=== PATIENT | female | born 1970 | race African-American/Black ===

== ENCOUNTER 2024-01-20 18:53 | Inpatient (IN) | payer OTHER, SELFPAY ==
[2024-01-20 19:14] VITALS: BMI 30.6
[2024-01-20 19:15] VITALS: BP 139/92; PULSE 74; RESP 16; TEMP 36.5; O2SAT 98
[2024-01-20 20:00] VITALS: BP 140/86; PULSE 80; RESP 20; TEMP 36.5; O2SAT 97
[2024-01-20] MEDS: Gabapentin 300 MG CAPSULE 900 MG PO (22:02)
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
[2024-01-21 08:00] VITALS: BP 144/78; PULSE 72; RESP 18; TEMP 36.3; O2SAT 99
[2024-01-21 08:17] LABS: MANUAL DIFF FLAG NO
[2024-01-21 08:27] LABS: Basophils Percent Auto 0.5 % (0-2); Eosinophils Absolute Auto 0.1 X10*3/uL (0.0-0.4); Hematocrit 42.1 % (37.0-47.0); Hemoglobin 13.4 g/dl (12.0-16.0); Lymphocytes Absolute Auto 1.8 X10*3/uL (1.2-4.9); Lymphocytes Percent Auto 49.3 % (20-40); Mean Corpuscular HGB Conc 31.8 g/dl (31.0-35.0); Mean Corpuscular Volume 81.6 fL (80.0-98.0); Mean Platelet Volume 9.6 fL (9.4-12.3); Monocytes Absolute Auto 0.2 X10*3/uL (0.1-1.2); Monocytes Percent Auto 5.2 % (2-11); Neutrophils Absolute Auto 1.5 x10*3/uL (2.0-8.3); Platelet Count 293 X10*3/uL (160-400); Red Blood Count 5.16 X10*6/uL (4.20-5.50); Red Cell Distribution Width 12.7 % (11.0-16.0); White Blood Count 3.7 X10*3/uL (4.8-10.8)
[2024-01-21] MEDS: amLODIPine Besylate 5 MG TABLET PO (08:33)
[2024-01-21] MEDS: Gabapentin 300 MG CAPSULE 900 MG PO ×3 (08:33→21:25)
[2024-01-21 08:39] LABS: Estimated Average Glucose 111 mg/dL; Hemoglobin A1C 135.0186 umol/L; Hemoglobin A1c % 5.5 % (<6.0); Total Hemoglobin (HGBA1C) 3646.3912 umol/L
[2024-01-21 08:48] LABS: Alanine Aminotransferase 11 U/L (0-31); Albumin Level 3.9 g/dL (3.5-5.0); Alkaline Phosphatase 89 U/L (39-117); Anion Gap 12 (12-20); Aspartate Amino Transferase 22 U/L (5-31); Bilirubin Direct 0.2 mg/dL (0.0-0.5); Bilirubin Total 0.5 mg/dL (0.0-1.0); Blood Urea Nitrogen 16 mg/dL (9-16); Calcium 9.6 mg/dL (8.4-10.2); Carbon Dioxide 26 mmol/L (22-29); Chloride 109 mmol/L (96-108); Cholesterol 155 mg/dL (<200); Creatinine Clr Calc Pharmacy 59.4; Estimated Glomerular Filt Rate > 60; Glucose Fasting 98 mg/dL (60-99); HDL Cholesterol 53 mg/dL (>40); LDL Cholesterol Calculated 82 mg/dL (<100); Potassium 3.9 mmol/L (3.3-5.1); Sodium 143 mmol/L (135-145); Triglycerides 101 mg/dL (<150)
[2024-01-21 09:03] LABS: Thyroid Stimulating Hormone 0.34 uIU/mL (0.32-4.0)
[2024-01-21 09:19] LABS: Folate 10.9 ng/mL (> or = 4.0); Vitamin B12 303 pg/mL (200-900)
[2024-01-21] MEDS: Acetaminophen 325 MG TABLET 650 MG PO ×2 (10:25→21:26)
[2024-01-21] MEDS: Ibuprofen 800 MG TABLET PO (10:25)
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
[2024-01-21 19:54] VITALS: BP 135/68; PULSE 80; TEMP 36.5; O2SAT 97
[2024-01-21] MEDS: lamoTRIgine 100 MG TABLET PO (21:26)
[2024-01-22 08:00] VITALS: BP 128/64; PULSE 89; RESP 18; TEMP 36.3; O2SAT 97
[2024-01-22 09:08] VITALS: BP 126/64
[2024-01-22] MEDS: lamoTRIgine 100 MG TABLET PO ×2 (09:08→23:39)
[2024-01-22] MEDS: Gabapentin 300 MG CAPSULE 900 MG PO ×3 (09:08→23:37)
[2024-01-22] MEDS: DULoxetine HCl 60 MG CAPSULE.DR PO (09:08)
[2024-01-22] MEDS: amLODIPine Besylate 5 MG TABLET PO (09:08)
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
[2024-01-22 20:00] VITALS: BP 154/85; PULSE 88; TEMP 36.6; O2SAT 96
[2024-01-22] MEDS: Pregabalin 25 MG CAPSULE PO (23:38)
[2024-01-23 08:00] VITALS: BP 156/80; PULSE 83; RESP 19; TEMP 36.7; O2SAT 97
[2024-01-23] MEDS: Pregabalin 25 MG CAPSULE PO ×2 (08:43→21:03)
[2024-01-23] MEDS: amLODIPine Besylate 5 MG TABLET PO (08:43)
[2024-01-23] MEDS: DULoxetine HCl 60 MG CAPSULE.DR PO (08:43)
[2024-01-23] MEDS: Gabapentin 300 MG CAPSULE 900 MG PO ×3 (08:44→21:03)
[2024-01-23] MEDS: lamoTRIgine 100 MG TABLET PO ×2 (08:44→21:04)
--- NOTE | 2024-01-23 10:46 | P.PNPSI_ITS ---
Subjective Subjective Date of Service: 01/23/24 Reason For Visit: Suicidal Ideation Subjective Notes: Conditional Voluntary Healthcare Proxy: No Guardianship: No Medical Problems Affecting Mental Status: No Interim History: Discussed stressors at home, losses, supports. 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 Discuss what helps her to cope. Extended family moving from the family home she believes will be the most helpful. Discussed pain and possibly changing Gabapentin to Lyrica Medication Compliance: Yes Side effects from medications: No Attending Groups: Intermittent Review of Systems Acute medical concerns: No Medical Review of Systems: unchanged Review of Systems Review of Systems chronic pain Yes all other systems are reviewed and are negative Mental Status Exam Mental Status Exam Patient Appearance: Appropriate Patient Orientation: Person, Place and Time Level of Consciousness: Awake and Appropriate Patient Behavior: Appropriate, Talkative and Good Eye Contact Mood Description: Calm, Depressed, Anxious and Sad Affect Description: Appropriate and Depressed Patient Cognition Impaired: No Ability to Follow Directions: Excellent Speech Pattern: Clear Memory Description: Intact Hallucinations: None Delusions: Not Present Thought Process: Intact, Goal Oriented and Linear Thought Content: positive for Logical Depressive Symptoms: Feelings of Worthlessness, Hopelessness and Unhappiness Judgement: Good Diagnostics Vital Signs (24Hr): Vital Signs - 24 hr 01/22/24 20:00 01/23/24 08:00 Temperature 97.9 F 98.0 F Pulse Rate 88 83 Respiratory Rate 19 Blood Pressure 154/85 H 156/80 H Pulse Oximetry 96 97 Oxygen Delivery Method Room Air Room Air BMI result Body Mass Index 30.6 Labs 01/21/24 08:12 01/21/24 08:12 Medications Medications Current Medications Acetaminophen (Acetaminophen 325 Mg Tablet) 650 mg PO Q6H PRN PRN Reason: Headache/Pain Mild Scale (1-3) Last Admin: 01/21/24 21:26 Dose: 650 mg Al Hydroxide/Mg Hydroxide (Magnesium Hydrox/Alum Hydrox 30 Ml Oral.Susp) 30 ml PO Q6H PRN PRN Reason: Heartburn/Nausea Amlodipine Besylate (Amlodipine Besylate 5 Mg Tablet) 5 mg PO DAILY [facility]; Protocol Last Admin: 01/23/24 08:43 Dose: 5 mg Duloxetine HCl (Duloxetine Hcl 60 Mg Capsule.Dr) 60 mg PO DAILY [facility] Last Admin: 01/23/24 08:43 Dose: 60 mg Gabapentin (Gabapentin 300 Mg Capsule) 900 mg PO TID [facility] Last Admin: 01/23/24 08:44 Dose: 900 mg Hydroxyzine HCl (Hydroxyzine Hcl 25 Mg Tablet) 25 mg PO Q6H PRN PRN Reason: Anxiety Ibuprofen (Ibuprofen 800 Mg Tablet) 800 mg PO Q8H PRN PRN Reason: Pain, Moderate(Pain Scale 4-6) Last Admin: 01/21/24 10:25 Dose: 800 mg Lamotrigine (Lamotrigine 100 Mg Tablet) 100 mg PO BID [facility] Last Admin: 01/23/24 08:44 Dose: 100 mg Magnesium Hydroxide (Milk Of Magnesia 30 Ml Oral.Susp) 30 ml PO DAILY PRN PRN Reason: Constipation Pregabalin (Pregabalin 25 Mg Capsule) 25 mg PO BID [facility] Last Admin: 01/23/24 08:43 Dose: 25 mg Trazodone HCl (Trazodone Hcl 50 Mg Tablet) 50 mg PO BEDTIME MRX1 PRN PRN Reason: Insomnia Allergies Allergies Allergy/AdvReac Type Severity Reaction Status Date / Time Latex, Natural Rubber Allergy Unknown Unknown Verified 01/20/24 17:35 Assessment & Plan Assessment & Plan (1) Bipolar disorder current episode depressed: Status: Acute Code(s): F31.30 - Bipolar disorder, current episode depressed, mild or moderate severity, unspecified Assessment and Plan: 53 yo female with history of bipolar disorder presented to [facility] feeling increasingly depressed, anxious, feeling like I am losing control and feeling like she is going to go into a manic episode. This is in the context of recurrence of pain and worsening mobility and home stress. Plan: - Admit to inpatient psychiatry - CV - Collateral information from family and providers. - Milieu treatment and group therapy. - Medications:Restart outpatient medications. Confirm medications when pharmacy opens. Consider adjustments. - Social work evaluation. - Disposition planning. Plan 01/22: Pt asks for no med changes. She is considering a trial change from Gabapentin to Lyrica. Groups encouarged. Rates depression anxiety 10/20 today. Reason for continued inpatient stay Substantial Risk for: rapid decompensation Time Spent With Patient Time: Total time managing care of this patient today ____ minutes.
[2024-01-23 20:00] VITALS: BP 144/82; PULSE 81; TEMP 36.5; O2SAT 98
[2024-01-24 08:27] VITALS: BP 146/84; PULSE 80; RESP 16; TEMP 36.4; O2SAT 100
[2024-01-24] MEDS: lamoTRIgine 100 MG TABLET PO ×2 (08:41→21:15)
[2024-01-24] MEDS: Pregabalin 25 MG CAPSULE PO (08:41)
[2024-01-24] MEDS: Gabapentin 300 MG CAPSULE 900 MG PO ×2 (08:42→16:42)
[2024-01-24] MEDS: amLODIPine Besylate 5 MG TABLET PO (08:42)
[2024-01-24] MEDS: DULoxetine HCl 60 MG CAPSULE.DR PO (08:42)
[2024-01-24] MEDS: bisacodyL 5 MG TABLET.DR 10 MG PO (13:10)
--- NOTE | 2024-01-24 17:39 | P.PNPSI_ITS ---
Subjective Subjective Date of Service: 01/24/24 Reason For Visit: Suicidal Ideation Subjective Notes: Conditional Voluntary Healthcare Proxy: No Guardianship: No Medical Problems Affecting Mental Status: No Interim History: Attending groups, 3 in total today Lyrica trial 50 mg bid Constipation-Dulcolax trial Discussed her irritation with peers on the unit who scream, are loud. One peer in particular she is triggered to anger by. Discussed, related to current life stressors. Education provided Discussed her frustrations with family, behaviors, lack of support, her care taking roles and making some changes. Declines psychotropic medication changes. Medication Compliance: Yes Side effects from medications: No Attending Groups: Yes Review of Systems Acute medical concerns: No Medical Review of Systems: unchanged Review of Systems Review of Systems Denies Yes all other systems are reviewed and are negative Mental Status Exam Mental Status Exam Patient Appearance: Appropriate Patient Orientation: Person, Place and Time Level of Consciousness: Awake and Appropriate Patient Behavior: Appropriate, Talkative and Good Eye Contact Mood Description: Calm, Depressed, Anxious and Sad Affect Description: Appropriate and Depressed Patient Cognition Impaired: No Ability to Follow Directions: Excellent Speech Pattern: Clear Memory Description: Intact Hallucinations: None Delusions: Not Present Thought Process: Intact, Goal Oriented and Linear Thought Content: positive for Logical Depressive Symptoms: Feelings of Worthlessness, Hopelessness and Unhappiness Judgement: Good Diagnostics Vital Signs (24Hr): Vital Signs - 24 hr 01/23/24 20:00 01/24/24 08:27 Temperature 97.7 F 97.5 F Pulse Rate 81 80 Respiratory Rate 16 Blood Pressure 144/82 H 146/84 H Pulse Oximetry 98 100 Oxygen Delivery Method Room Air Room Air BMI result Body Mass Index 30.6 Labs 01/21/24 08:12 01/21/24 08:12 Medications Medications Current Medications Acetaminophen (Acetaminophen 325 Mg Tablet) 650 mg PO Q6H PRN PRN Reason: Headache/Pain Mild Scale (1-3) Last Admin: 01/21/24 21:26 Dose: 650 mg Al Hydroxide/Mg Hydroxide (Magnesium Hydrox/Alum Hydrox 30 Ml Oral.Susp) 30 ml PO Q6H PRN PRN Reason: Heartburn/Nausea Amlodipine Besylate (Amlodipine Besylate 5 Mg Tablet) 5 mg PO DAILY [facility]; Protocol Last Admin: 01/24/24 08:42 Dose: 5 mg Duloxetine HCl (Duloxetine Hcl 60 Mg Capsule.Dr) 60 mg PO DAILY [facility] Last Admin: 01/24/24 08:42 Dose: 60 mg Gabapentin (Gabapentin 300 Mg Capsule) 900 mg PO TID [facility] Last Admin: 01/24/24 16:42 Dose: 900 mg Hydroxyzine HCl (Hydroxyzine Hcl 25 Mg Tablet) 25 mg PO Q6H PRN PRN Reason: Anxiety Ibuprofen (Ibuprofen 800 Mg Tablet) 800 mg PO Q8H PRN PRN Reason: Pain, Moderate(Pain Scale 4-6) Last Admin: 01/21/24 10:25 Dose: 800 mg Lamotrigine (Lamotrigine 100 Mg Tablet) 100 mg PO BID [facility] Last Admin: 01/24/24 08:41 Dose: 100 mg Magnesium Hydroxide (Milk Of Magnesia 30 Ml Oral.Susp) 30 ml PO DAILY PRN PRN Reason: Constipation Pregabalin (Pregabalin 25 Mg Capsule) 25 mg PO BID [facility] Last Admin: 01/24/24 08:41 Dose: 25 mg Trazodone HCl (Trazodone Hcl 50 Mg Tablet) 50 mg PO BEDTIME MRX1 PRN PRN Reason: Insomnia Allergies Allergies Allergy/AdvReac Type Severity Reaction Status Date / Time Latex, Natural Rubber Allergy Unknown Unknown Verified 01/20/24 17:35 Assessment & Plan Assessment & Plan (1) Bipolar disorder current episode depressed: Status: Acute Code(s): F31.30 - Bipolar disorder, current episode depressed, mild or moderate severity, unspecified Assessment and Plan: 53 yo female with history of bipolar disorder presented to [facility] feeling increasingly depressed, anxious, feeling like I am losing control and feeling like she is going to go into a manic episode. This is in the context of recurrence of pain and worsening mobility and home stress. 01/21: Lyrica trial for reported pain. Plan: - Admit to inpatient psychiatry - CV - Collateral information from family and providers. - Milieu treatment and group therapy. - Medications:Restart outpatient medications. Confirm medications when pharmacy opens. Consider adjustments. - Social work evaluation. - Disposition planning. Plan 01/24/24: Lyrica 50 mg bid Reason for continued inpatient stay Substantial Risk for: rapid decompensation Time Spent With Patient Time: Total time managing care of this patient today ____ minutes.
[2024-01-24 19:58] VITALS: BP 142/65; PULSE 83; RESP 14; TEMP 36.7; O2SAT 98
[2024-01-24] MEDS: Pregabalin 150 MG CAPSULE PO (21:15)
[2024-01-25] MEDS: Acetaminophen 325 MG TABLET 650 MG PO (06:13)
[2024-01-25] MEDS: Ibuprofen 800 MG TABLET PO (06:13)
[2024-01-25 07:00] VITALS: BMI 31.7
[2024-01-25 08:00] VITALS: BP 131/86; PULSE 71; RESP 16; TEMP 36.4; O2SAT 100
[2024-01-25] MEDS: amLODIPine Besylate 5 MG TABLET PO (08:49)
[2024-01-25] MEDS: Pregabalin 150 MG CAPSULE PO ×3 (08:49→21:10)
[2024-01-25] MEDS: DULoxetine HCl 60 MG CAPSULE.DR PO (08:49)
[2024-01-25] MEDS: lamoTRIgine 100 MG TABLET PO ×2 (08:49→21:11)
[2024-01-25] MEDS: Lactulose 20 GM/30 ML SOLUTION 30 GM PO (13:23)
--- NOTE | 2024-01-25 18:30 | P.PNPSI_ITS ---
Subjective Subjective Date of Service: 01/25/24 Reason For Visit: Suicidal Ideation Subjective Notes: Conditional Voluntary Healthcare Proxy: No Guardianship: No Medical Problems Affecting Mental Status: No Interim History: Gabapentin change to Lyrica- discussed with pt, dosage adjustment reviewed with rationale and follow up with [facility]. Pt verbalized understanding and thus far, improved relief with improved mood. Attending more groups and would like to continue in milieu for a brief time as she reports finding benefit from group and team reports she is an active participant in group. Medication Compliance: Yes Side effects from medications: No Attending Groups: Yes Review of Systems Acute medical concerns: No Medical Review of Systems: unchanged Review of Systems Review of Systems Denies Yes all other systems are reviewed and are negative Mental Status Exam Mental Status Exam Patient Appearance: Appropriate Patient Orientation: Person, Place and Time Level of Consciousness: Awake and Appropriate Patient Behavior: Appropriate, Talkative and Good Eye Contact Mood Description: Calm, Depressed, Anxious and Sad Affect Description: Appropriate and Depressed Patient Cognition Impaired: No Ability to Follow Directions: Excellent Speech Pattern: Clear Memory Description: Intact Hallucinations: None Delusions: Not Present Thought Process: Intact, Goal Oriented and Linear Thought Content: positive for Logical Depressive Symptoms: Feelings of Worthlessness, Hopelessness and Unhappiness Judgement: Good Diagnostics Vital Signs (24Hr): Vital Signs - 24 hr 01/24/24 19:58 01/25/24 08:00 Temperature 98.1 F 97.5 F Pulse Rate 83 71 Respiratory Rate 14 16 Blood Pressure 142/65 H 131/86 Pulse Oximetry 98 100 Oxygen Delivery Method Room Air Room Air BMI result Body Mass Index 31.7 Labs 01/21/24 08:12 01/21/24 08:12 Medications Medications Current Medications Acetaminophen (Acetaminophen 325 Mg Tablet) 650 mg PO Q6H PRN PRN Reason: Headache/Pain Mild Scale (1-3) Last Admin: 01/25/24 06:13 Dose: 650 mg Al Hydroxide/Mg Hydroxide (Magnesium Hydrox/Alum Hydrox 30 Ml Oral.Susp) 30 ml PO Q6H PRN PRN Reason: Heartburn/Nausea Amlodipine Besylate (Amlodipine Besylate 5 Mg Tablet) 5 mg PO DAILY [facility]; Protocol Last Admin: 01/25/24 08:49 Dose: 5 mg Duloxetine HCl (Duloxetine Hcl 60 Mg Capsule.Dr) 60 mg PO DAILY [facility] Last Admin: 01/25/24 08:49 Dose: 60 mg Hydroxyzine HCl (Hydroxyzine Hcl 25 Mg Tablet) 25 mg PO Q6H PRN PRN Reason: Anxiety Ibuprofen (Ibuprofen 800 Mg Tablet) 800 mg PO Q8H PRN PRN Reason: Pain, Moderate(Pain Scale 4-6) Last Admin: 01/25/24 06:13 Dose: 800 mg Lamotrigine (Lamotrigine 100 Mg Tablet) 100 mg PO BID [facility] Last Admin: 01/25/24 08:49 Dose: 100 mg Magnesium Hydroxide (Milk Of Magnesia 30 Ml Oral.Susp) 30 ml PO DAILY PRN PRN Reason: Constipation Pregabalin (Pregabalin 150 Mg Capsule) 150 mg PO TID [facility] Last Admin: 01/25/24 14:54 Dose: 150 mg Trazodone HCl (Trazodone Hcl 50 Mg Tablet) 50 mg PO BEDTIME MRX1 PRN PRN Reason: Insomnia Allergies Allergies Allergy/AdvReac Type Severity Reaction Status Date / Time Latex, Natural Rubber Allergy Unknown Unknown Verified 01/20/24 17:35 Assessment & Plan Assessment & Plan (1) Bipolar disorder current episode depressed: Status: Acute Code(s): F31.30 - Bipolar disorder, current episode depressed, mild or moderate severity, unspecified Assessment and Plan: 53 yo female with history of bipolar disorder presented to [facility] feeling increasingly depressed, anxious, feeling like I am losing control and feeling like she is going to go into a manic episode. This is in the context of recurrence of pain and worsening mobility and home stress. 01/21: Lyrica trial for reported pain. Plan: - Admit to inpatient psychiatry - CV - Collateral information from family and providers. - Milieu treatment and group therapy. - Medications:Restart outpatient medications. Confirm medications when pharmacy opens. Consider adjustments. - Social work evaluation. - Disposition planning. Plan 01/25/24- Gabapentin 2700mg daily converted to Lyrica 450 mg daily, 150 mg tid. Pt reports positive results at this time with relief. Continue to encouarge milieu engagement. Reason for continued inpatient stay Substantial Risk for: rapid decompensation Time Spent With Patient Time: Total time managing care of this patient today ____ minutes.
[2024-01-25 21:00] VITALS: BP 137/79; PULSE 81; RESP 16; O2SAT 99
[2024-01-26 08:00] VITALS: BP 131/78; PULSE 70; RESP 18; TEMP 37.1; O2SAT 99
[2024-01-26] MEDS: lamoTRIgine 100 MG TABLET PO ×2 (08:40→23:11)
[2024-01-26] MEDS: DULoxetine HCl 60 MG CAPSULE.DR PO (08:40)
[2024-01-26] MEDS: Pregabalin 150 MG CAPSULE PO ×3 (08:40→23:11)
[2024-01-26] MEDS: amLODIPine Besylate 5 MG TABLET PO (08:40)
[2024-01-26] MEDS: Milk of Magnesia 30 ML ORAL.SUSP PO (08:41)
--- NOTE | 2024-01-26 09:50 | HO.PSYCHPN ---
Subjective Subjective Date of Service: 01/26/24 Reason For Visit: Suicidal Ideation Subjective Notes: Conditional Voluntary Healthcare Proxy: No Guardianship: No Medical Problems Affecting Mental Status: No Interim History: Denies SI/HI/AH/VH. No sx of psychosis, anneliese Attending groups, participating in milieu-important for her with current identified stressors No adverse effects from Lyrica, continues to find pain relief with the transition from Gabapentin. Medication Compliance: Yes Side effects from medications: No Attending Groups: Yes Review of Systems Acute medical concerns: No Medical Review of Systems: unchanged Review of Systems Review of Systems Denies Mental Status Exam Mental Status Exam Patient Appearance: Appropriate Patient Orientation: Person, Place, Time and Situation Level of Consciousness: Awake and Appropriate Patient Behavior: Appropriate, Talkative and Good Eye Contact Mood Description: Calm and Apprehensive Affect Description: Appropriate and Apprehensive Patient Cognition Impaired: No Ability to Follow Directions: Excellent Speech Pattern: Clear Memory Description: Intact Hallucinations: None Delusions: Not Present Thought Process: Intact, Goal Oriented and Linear Thought Content: positive for Logical Depressive Symptoms: Feelings of Worthlessness, Hopelessness and Unhappiness Judgement: Good Diagnostics Vital Signs (24Hr): Vital Signs - 24 hr 01/25/24 21:00 01/26/24 08:00 Temperature 98.8 F Pulse Rate 81 70 Respiratory Rate 16 18 Blood Pressure 137/79 131/78 Pulse Oximetry 99 99 Oxygen Delivery Method Room Air BMI result Body Mass Index 31.7 Labs 01/21/24 08:12 01/21/24 08:12 Medications Medications Current Medications Acetaminophen (Acetaminophen 325 Mg Tablet) 650 mg PO Q6H PRN PRN Reason: Headache/Pain Mild Scale (1-3) Last Admin: 01/25/24 06:13 Dose: 650 mg Al Hydroxide/Mg Hydroxide (Magnesium Hydrox/Alum Hydrox 30 Ml Oral.Susp) 30 ml PO Q6H PRN PRN Reason: Heartburn/Nausea Amlodipine Besylate (Amlodipine Besylate 5 Mg Tablet) 5 mg PO DAILY [facility]; Protocol Last Admin: 01/26/24 08:40 Dose: 5 mg Duloxetine HCl (Duloxetine Hcl 60 Mg Capsule.Dr) 60 mg PO DAILY [facility] Last Admin: 01/26/24 08:40 Dose: 60 mg Hydroxyzine HCl (Hydroxyzine Hcl 25 Mg Tablet) 25 mg PO Q6H PRN PRN Reason: Anxiety Ibuprofen (Ibuprofen 800 Mg Tablet) 800 mg PO Q8H PRN PRN Reason: Pain, Moderate(Pain Scale 4-6) Last Admin: 01/25/24 06:13 Dose: 800 mg Lamotrigine (Lamotrigine 100 Mg Tablet) 100 mg PO BID [facility] Last Admin: 01/26/24 08:40 Dose: 100 mg Magnesium Hydroxide (Milk Of Magnesia 30 Ml Oral.Susp) 30 ml PO DAILY PRN PRN Reason: Constipation Last Admin: 01/26/24 08:41 Dose: 30 ml Pregabalin (Pregabalin 150 Mg Capsule) 150 mg PO TID [facility] Last Admin: 01/26/24 08:40 Dose: 150 mg Trazodone HCl (Trazodone Hcl 50 Mg Tablet) 50 mg PO BEDTIME MRX1 PRN PRN Reason: Insomnia Allergies Allergies Allergy/AdvReac Type Severity Reaction Status Date / Time Latex, Natural Rubber Allergy Unknown Unknown Verified 01/20/24 17:35 Assessment & Plan Assessment & Plan (1) Bipolar disorder current episode depressed: Status: Acute Code(s): F31.30 - Bipolar disorder, current episode depressed, mild or moderate severity, unspecified Assessment and Plan: 53 yo female with history of bipolar disorder presented to [facility] feeling increasingly depressed, anxious, feeling like I am losing control and feeling like she is going to go into a manic episode. This is in the context of recurrence of pain and worsening mobility and home stress. 01/21: Lyrica trial for reported pain. Plan: - Admit to inpatient psychiatry - CV - Collateral information from family and providers. - Milieu treatment and group therapy. - Medications:Restart outpatient medications. Confirm medications when pharmacy opens. Consider adjustments. - Social work evaluation. - Disposition planning. Plan 01/26/24: Continue current plan. Observe for SE of Lyrica, anneliese. Encourage milieu. Reason for continued inpatient stay Substantial Risk for: rapid decompensation Time Spent With Patient Time: Total time managing care of this patient today ____ minutes.
[2024-01-27 08:00] VITALS: BP 118/69; PULSE 66; RESP 16; TEMP 36.8; O2SAT 99
[2024-01-27] MEDS: DULoxetine HCl 60 MG CAPSULE.DR PO (08:18)
[2024-01-27] MEDS: Pregabalin 150 MG CAPSULE PO (08:18)
[2024-01-27] MEDS: amLODIPine Besylate 5 MG TABLET PO (08:18)
[2024-01-27] MEDS: lamoTRIgine 100 MG TABLET PO ×2 (08:18→21:25)
--- NOTE | 2024-01-27 10:49 | HO.PSYCHPN ---
Subjective Subjective Date of Service: 01/27/24 Reason For Visit: Suicidal Ideation Subjective Notes: Conditional Voluntary Healthcare Proxy: No Medical Problems Affecting Mental Status: No Interim History: Patient was seen and discussed in rounds today. Records and plans were reviewed. She states that Lyrica has been very helpful with her fibromyalgia pain however with the increase she has blurred vision, tremor, dizziness and abnormality of gait. I will decrease it to 100 mg t.i.d.. No SI. Sleeping adequately. No other changes were made Medication Compliance: Yes Side effects from medications: Yes (Dizziness, blurred vision and abnormality of gait probably secondary to Lyr) Attending Groups: Yes Review of Systems Review of Systems Dizziness, abnormality of gait Yes all other systems are reviewed and are negative Mental Status Exam Mental Status Exam Narrative: In today's visit she is alert, oriented and pleasant. Normal speech. Good eye contact. Affect is appropriate and varied. No signs of psychosis. Cognitively she is intact. She is able to move all limbs. Some abnormality of gait is observed. No acute signs of psychosis. No SI. Judgment is intact Diagnostics Vital Signs (24Hr): Vital Signs - 24 hr 01/27/24 08:00 Temperature 98.2 F Pulse Rate 66 Respiratory Rate 16 Blood Pressure 118/69 Pulse Oximetry 99 Oxygen Delivery Method Room Air BMI result Body Mass Index 31.7 Labs 01/21/24 08:12 01/21/24 08:12 Medications Medications Current Medications Acetaminophen (Acetaminophen 325 Mg Tablet) 650 mg PO Q6H PRN PRN Reason: Headache/Pain Mild Scale (1-3) Last Admin: 01/25/24 06:13 Dose: 650 mg Al Hydroxide/Mg Hydroxide (Magnesium Hydrox/Alum Hydrox 30 Ml Oral.Susp) 30 ml PO Q6H PRN PRN Reason: Heartburn/Nausea Amlodipine Besylate (Amlodipine Besylate 5 Mg Tablet) 5 mg PO DAILY [facility]; Protocol Last Admin: 01/27/24 08:18 Dose: 5 mg Duloxetine HCl (Duloxetine Hcl 60 Mg Capsule.Dr) 60 mg PO DAILY [facility] Last Admin: 01/27/24 08:18 Dose: 60 mg Hydroxyzine HCl (Hydroxyzine Hcl 25 Mg Tablet) 25 mg PO Q6H PRN PRN Reason: Anxiety Ibuprofen (Ibuprofen 800 Mg Tablet) 800 mg PO Q8H PRN PRN Reason: Pain, Moderate(Pain Scale 4-6) Last Admin: 01/25/24 06:13 Dose: 800 mg Lamotrigine (Lamotrigine 100 Mg Tablet) 100 mg PO BID [facility] Last Admin: 01/27/24 08:18 Dose: 100 mg Magnesium Hydroxide (Milk Of Magnesia 30 Ml Oral.Susp) 30 ml PO DAILY PRN PRN Reason: Constipation Last Admin: 01/26/24 08:41 Dose: 30 ml Pregabalin (Pregabalin 100 Mg Capsule) 100 mg PO TID [facility] Trazodone HCl (Trazodone Hcl 50 Mg Tablet) 50 mg PO BEDTIME MRX1 PRN PRN Reason: Insomnia Allergies Allergies Allergy/AdvReac Type Severity Reaction Status Date / Time Latex, Natural Rubber Allergy Unknown Unknown Verified 01/20/24 17:35 Assessment & Plan Assessment & Plan (1) Bipolar disorder current episode depressed: Status: Acute Code(s): F31.30 - Bipolar disorder, current episode depressed, mild or moderate severity, unspecified Assessment and Plan: 53 yo female with history of bipolar disorder presented to [facility] feeling increasingly depressed, anxious, feeling like I am losing control and feeling like she is going to go into a manic episode. This is in the context of recurrence of pain and worsening mobility and home stress. 01/21: Lyrica trial for reported pain. Plan: - Admit to inpatient psychiatry - CV - Collateral information from family and providers. - Milieu treatment and group therapy. - Medications:Restart outpatient medications. Confirm medications when pharmacy opens. Consider adjustments. - Social work evaluation. - Disposition planning. Plan 01/26/24: Continue current plan. Observe for SE of Lyrica, anneliese. Encourage milieu. 01/26: Continue current regimen and plans for stabilization and medication management. Decrease Lyrica to 100 mg t.i.d. Reason for continued inpatient stay Substantial Risk for: med/psych decompensation Time Spent With Patient Time: Total time managing care of this patient today ____ minutes.
[2024-01-27 20:00] VITALS: BP 134/84; PULSE 78; RESP 16; TEMP 36.3; O2SAT 98
[2024-01-27] MEDS: Milk of Magnesia 30 ML ORAL.SUSP PO (21:28)
[2024-01-27] MEDS: Acetaminophen 325 MG TABLET 650 MG PO (21:33)
[2024-01-28 08:00] VITALS: BP 118/65; PULSE 69; RESP 16; TEMP 36.4; O2SAT 98
[2024-01-28] MEDS: Acetaminophen 325 MG TABLET 650 MG PO (08:53)
[2024-01-28] MEDS: amLODIPine Besylate 5 MG TABLET PO (08:53)
[2024-01-28] MEDS: DULoxetine HCl 60 MG CAPSULE.DR PO (08:54)
[2024-01-28] MEDS: lamoTRIgine 100 MG TABLET PO ×2 (08:54→20:39)
--- NOTE | 2024-01-28 09:28 | P.PNPSI_ITS ---
Subjective Subjective Date of Service: 01/28/24 Reason For Visit: Suicidal Ideation Subjective Notes: Conditional Voluntary Healthcare Proxy: No Medical Problems Affecting Mental Status: No Interim History: Patient was seen and discussed in rounds today. Records and plans were reviewed. She states that even though I decrease the Lyrica she did not take it and states that her dizziness, tremor and abnormality of gait have disappeared. She is going to talk to her provider tomorrow about maybe going back on the gabapentin or a much lower dose of Lyrica. Slept 8 hours. No other complaints. No changes today Medication Compliance: Yes Side effects from medications: Yes (Dizziness, blurred vision and abnormality of gait probably secondary to Lyr) Attending Groups: Yes Review of Systems Review of Systems Yes all other systems are reviewed and are negative Mental Status Exam Mental Status Exam Narrative: In today's visit she is alert, oriented and pleasant. Normal speech. Good eye contact. Affect is appropriate and varied. No signs of psychosis. Cognitively she is intact. She is able to move all limbs. No abnormality of gait is observed. No acute signs of psychosis. No SI. Judgment is intact Diagnostics Vital Signs (24Hr): Vital Signs - 24 hr 01/27/24 20:00 01/28/24 08:00 Temperature 97.4 F 97.5 F Pulse Rate 78 69 Respiratory Rate 16 16 Blood Pressure 134/84 118/65 Pulse Oximetry 98 98 Oxygen Delivery Method Room Air Room Air BMI result Body Mass Index 31.7 Labs 01/21/24 08:12 01/21/24 08:12 Medications Medications Current Medications Acetaminophen (Acetaminophen 325 Mg Tablet) 650 mg PO Q6H PRN PRN Reason: Headache/Pain Mild Scale (1-3) Last Admin: 01/28/24 08:53 Dose: 650 mg Al Hydroxide/Mg Hydroxide (Magnesium Hydrox/Alum Hydrox 30 Ml Oral.Susp) 30 ml PO Q6H PRN PRN Reason: Heartburn/Nausea Amlodipine Besylate (Amlodipine Besylate 5 Mg Tablet) 5 mg PO DAILY [facility]; Protocol Last Admin: 01/28/24 08:53 Dose: 5 mg Duloxetine HCl (Duloxetine Hcl 60 Mg Capsule.Dr) 60 mg PO DAILY [facility] Last Admin: 01/28/24 08:54 Dose: 60 mg Hydroxyzine HCl (Hydroxyzine Hcl 25 Mg Tablet) 25 mg PO Q6H PRN PRN Reason: Anxiety Ibuprofen (Ibuprofen 800 Mg Tablet) 800 mg PO Q8H PRN PRN Reason: Pain, Moderate(Pain Scale 4-6) Last Admin: 01/25/24 06:13 Dose: 800 mg Lamotrigine (Lamotrigine 100 Mg Tablet) 100 mg PO BID [facility] Last Admin: 01/28/24 08:54 Dose: 100 mg Magnesium Hydroxide (Milk Of Magnesia 30 Ml Oral.Susp) 30 ml PO DAILY PRN PRN Reason: Constipation Last Admin: 01/27/24 21:28 Dose: 30 ml Pregabalin (Pregabalin 100 Mg Capsule) 100 mg PO TID [facility] Last Admin: 01/28/24 08:54 Dose: Not Given Trazodone HCl (Trazodone Hcl 50 Mg Tablet) 50 mg PO BEDTIME MRX1 PRN PRN Reason: Insomnia Allergies Allergies Allergy/AdvReac Type Severity Reaction Status Date / Time Latex, Natural Rubber Allergy Unknown Unknown Verified 01/20/24 17:35 Assessment & Plan Assessment & Plan (1) Bipolar disorder current episode depressed: Status: Acute Code(s): F31.30 - Bipolar disorder, current episode depressed, mild or moderate severity, unspecified Assessment and Plan: 53 yo female with history of bipolar disorder presented to [facility] feeling increasingly depressed, anxious, feeling like I am losing control and feeling like she is going to go into a manic episode. This is in the context of recurrence of pain and worsening mobility and home stress. 01/21: Lyrica trial for reported pain. Plan: - Admit to inpatient psychiatry - CV - Collateral information from family and providers. - Milieu treatment and group therapy. - Medications:Restart outpatient medications. Confirm medications when pharmacy opens. Consider adjustments. - Social work evaluation. - Disposition planning. Plan 01/26/24: Continue current plan. Observe for SE of Lyrica, anneliese. Encourage milieu. 01/26: Continue current regimen and plans for stabilization and medication management. Decrease Lyrica to 100 mg t.i.d. 01/27: Continue current regimen and plans for stabilization and medication management Patient educated on: medication risk/benefits Reason for continued inpatient stay Substantial Risk for: med/psych decompensation Time Spent With Patient Time: Total time managing care of this patient today ____ minutes.
[2024-01-28 19:46] VITALS: BP 134/69; PULSE 74; RESP 15; TEMP 36.4; O2SAT 98
[2024-01-29 08:00] VITALS: BP 138/81; PULSE 65; RESP 18; TEMP 36.4; O2SAT 100
[2024-01-29] MEDS: amLODIPine Besylate 5 MG TABLET PO (08:59)
[2024-01-29] MEDS: DULoxetine HCl 60 MG CAPSULE.DR PO (08:59)
[2024-01-29] MEDS: lamoTRIgine 100 MG TABLET PO (08:59)
[2024-01-29] MEDS: Ibuprofen 800 MG TABLET PO (09:01)
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
== END 2024-01-29 11:51 | disposition home or self-care (01) | DRG 753 ==
PROVIDERS: Admitting Provider Psychiatry & Neurology Psychiatry; Visit Provider Clinical Nurse Specialist Psychiatric/Mental Health, Adult
DX: F31.30 Bipolar disorder, current episode depressed, mild or moderate severity, unspecified (principal); M79.7 Fibromyalgia; Z79.899 Other long term (current) drug therapy
CPT/HCPCS: 36415; 80053; 80061; 80076; 82607; 82746; 83036; 84439; 84443; 85025; 97161

== ENCOUNTER → 2024-01-20 18:53 | Outpatient (BNV) | payer OTHER, SELFPAY | PROVIDERS: Admitting Provider Psychiatry & Neurology Psychiatry; Visit Provider Psychiatry & Neurology Psychiatry | DX: F31.32 Bipolar disorder, current episode depressed, moderate (principal) | CPT/HCPCS: 90792; 99231; 99232; 99238 ==

== ENCOUNTER → 2024-01-20 18:53 | Outpatient (BNV) | payer OTHER, SELFPAY | PROVIDERS: Admitting Provider Psychiatry & Neurology Psychiatry; Visit Provider Student in an Organized Health Care Education/Training Program | DX: M79.7 Fibromyalgia (principal) | CPT/HCPCS: 99222 ==